=== PATIENT | female | born 1950 | race Caucasian/White ===

== ENCOUNTER 2018-05-29 22:54 | Inpatient (IN) | payer OTHER ==
[~2018-05-29] VITALS: Ht 165.1 cm; Wt 41.6 kg
[2018-05-29] MEDS ORDERED: ALBUTEROL/IPRATROPIUM 2.5MG/0.5MG, 3 ML NPPB ONE (23:00)
[2018-05-29] MEDS ORDERED: SODIUM CHLORIDE FLUSH 10ML SYR IVF ONE (23:00)
[2018-05-29] MEDS ORDERED: methylPREDNISolone SOD SUCC 125 MG/2 ML IVP ONE (23:00)
--- NOTE | 2018-05-29 23:17 | NUR ---
bib remsa for sob and pt reports gettin worse over last 2 weeks. pt was able to speak 3-4 word sentences upon [facility] arrival. pt given 1 nitro/ rt txts. still breathing 50/min upon arrival. pt placed on optiflow and now rr is 40s and pt reports feeling better. ekg done, lab at [facility].
[2018-05-29] MEDS ORDERED: methylPREDNISolone SOD SUCC 125 MG/2 ML ONE (23:20)
[2018-05-29] MEDS ORDERED: PLEASE ENTER ALLERGIES MC SCH (23:30)
[2018-05-29 23:40] LABS: BASOPHILS # (AUTO) 0.01 x10^3/uL (0-0.1); BASOPHILS % (AUTO) 0 % (0-1); EOSINOPHILS # (AUTO) 0.02 x10^3/uL (0-0.4); EOSINOPHILS % (AUTO) 0 % (1-7); LYMPHOCYTES # (AUTO) 0.63 x10^3/uL (1-3.4); LYMPHOCYTES % (AUTO) 6 % (22-44); MD NO; MEAN CORPUSCULAR HEMOGLOBIN 28.8 pg (27.0-34.8); MEAN CORPUSCULAR HGB CONC 31.8 g/dL (32.4-35.8); MEAN CORPUSCULAR VOLUME 90.6 fL (80-100); MEAN PLATELET VOLUME 10.1 fL (7.4-10.4); MONOCYTES # (AUTO) 0.52 x10^3/uL (0.2-0.8); MONOCYTES % (AUTO) 5 % (2-9); NEUTROPHILS # (AUTO) 9.27 x10^3/uL (1.8-6.8); NEUTROPHILS % (AUTO) 89 % (42-75); PLATELET COUNT 200 x10^3/uL (130-400); RED BLOOD COUNT 4.45 x10^6/uL (3.82-5.3); RED CELL DISTRIBUTION WIDTH 14.8 % (9.6-15.2)
[2018-05-29 23:51] LABS: ALBUMIN 3.6 g/dL (3.4-5.0); ANION GAP 4 mmol/L (5-15); CALCIUM 10.1 mg/dL (8.5-10.1); CHLORIDE 106 mmol/L (98-107)
[2018-05-29] MEDS ORDERED: METF500T17 PO (23:55)
[2018-05-29] MEDS ORDERED: SPIR25TA5 PO (23:55)
[2018-05-29] MEDS ORDERED: IPRA4AER IH (23:55)
[2018-05-29] MEDS ORDERED: POTA10TA12 PO (23:55)
[2018-05-29] MEDS ORDERED: CHOL10002 PO (23:55)
[2018-05-29] MEDS ORDERED: TIOT18CA INH (23:55)
[2018-05-29] MEDS ORDERED: CARV12.543 PO (23:55)
[2018-05-29 23:56] LABS: ALANINE AMINOTRANSFERASE 37 U/L (12-78); ALKALINE PHOSPHATASE 115 U/L (45-117); BILIRUBIN,TOTAL 0.9 mg/dL (0.2-1.0); CREATININE 1.25 mg/dL (0.55-1.02); TOTAL PROTEIN 6.4 g/dL (6.4-8.2); TROPONIN I 0.081 ng/mL (0.000-0.045)
[2018-05-30] MEDS ORDERED: ETOMIDATE 40 MG/20 ML ONE
[2018-05-30] MEDS ORDERED: ROCURONIUM 10 MG/ML,10ML ONE
[2018-05-30] MEDS ORDERED: SUCCINYLCHOLINE 20 MG/ML, 10ML ONE
[2018-05-30] MEDS ORDERED: PROPOFOL 10 MG/ML, 100ML IV ONE
--- NOTE | 2018-05-30 00:08 | NUR ---
pt tolerating optiflo better. pt sleeping, side rails up, locked and pt given ice chips/
[2018-05-30] MEDS ORDERED: FUROSEMIDE 40 MG/4 ML IV ONE (00:30)
[2018-05-30] MEDS ORDERED: ASPIRIN 325 MG TABLET PO ONE (00:30)
--- NOTE | 2018-05-30 00:32 | NUR ---
PT BEDSIDE REPORT FROM MONIQUE RN. THIS RN TO ASSUME CARE OF PT. PT LUNG SOUNDS DIMINISHED THROUGHOUT. NO NOTABLE EXPIRATORY WHEEZES AT THIS TIME. PT TOLERATING OPTI-FLOW WELL AND RT TO DECREASE SETTINGS. VSS. CALL LIGHT WITHIN REACH. AWAITING ADM.
[2018-05-30] MEDS ORDERED: FUROSEMIDE 20 MG/2 ML ONE (00:37)
[2018-05-30] MEDS ORDERED: ASPIRIN 325 MG TABLET ONE (00:37)
[2018-05-30] MEDS ORDERED: ALBUTEROL/IPRATROPIUM 2.5MG/0.5MG, 3 ML ONE (01:19)
[2018-05-30] MEDS ORDERED: ACETAMINOPHEN 325 MG TABLET PO PRN (02:00)
[2018-05-30] MEDS ORDERED: LABETALOL 5MG/ML, 20ML IVPush PRN (02:00)
[2018-05-30] MEDS ORDERED: PROMETHAZINE 25 MG/ML, 1ML IM PRN (02:00)
[2018-05-30] MEDS ORDERED: ONDANSETRON ODT 4 MG PO PRN (02:00)
[2018-05-30] MEDS ORDERED: ONDANSETRON 2MG/ML, 2ML IVPush PRN (02:00)
[2018-05-30] MEDS ORDERED: hydrALAzine 20 MG/ML, 1ML IVPush PRN (02:00)
[2018-05-30] MEDS: ALBUTEROL/IPRATROPIUM 2.5MG/0.5MG, 3 ML NPPB SCH ×4 (02:00→13:44)
[2018-05-30] MEDS ORDERED: DOCUSATE 100 MG CAPSULE PO PRN (02:00)
[2018-05-30] MEDS ORDERED: BISACODYL 10 MG SUPP PR PRN ×2 (02:00→15:00)
[2018-05-30] MEDS ORDERED: POLYETHYLENE GLYCOL 17 GM PACKET PO PRN (02:00)
[2018-05-30] MEDS: methylPREDNISolone SOD SUCC 125 MG/2 ML IVPush SCH ×4 (02:23→21:40)
[2018-05-30] MEDS: FUROSEMIDE 20 MG/2 ML IV SCH ×2 (02:23→08:38)
--- NOTE | 2018-05-30 02:36 | NUR ---
PT SLEEPING COMFORTABLY ON GURNEY. RR EVEN AND UNLABORED. PT EASILY ROUSABLE TO NAME. STATES "I HAVENT BREATHED THIS GOOD IN YEARS". CALL LIGHT WITHIN REACH.
--- NOTE | 2018-05-30 02:38 | NUR ---
PT OFFERED MORE COMFORTABLE BED (HOSPITAL BED). PT DENIES AT THIS TIME. "I JUST WANT TO SLEEP. IM COMFORTABLE"
[2018-05-30 02:40] LABS: FREE T4 (FREE THYROXINE) 1.53 ng/dL (0.76-1.46); HEMOGLOBIN A1C 7.3 % (4.2-6.3); THYROID STIMULATING HORMONE 1.98 mIU/L (0.358-3.740)
--- NOTE | 2018-05-30 02:40 | NUR ---
PT PUT PANTS BACK ON BECAUSE COLD. GIVEN ALEE LEONELGGER AND STILL ASKING FOR PANTS.
[2018-05-30] MEDS ORDERED: HEPARIN 5,000 UNITS/ML, 1ML ONE (02:48)
[2018-05-30] MEDS: HEPARIN 5,000 UNITS/ML, 1ML SQ SCH ×3 (02:52→18:13)
[2018-05-30 05:28] VITALS: BP 162/93
[2018-05-30 07:40] VITALS: BP 158/84
[2018-05-30] MEDS: INSULIN LISPRO 100 UNITS/ML, PEN SQ-INSULIN SCH ×7 (08:50→20:38)
[2018-05-30] MEDS: CHOLECALCIFEROL 1,000 UNIT TABLET PO SCH (08:50)
[2018-05-30] MEDS: DOXYCYCLINE 100MG TABLET PO SCH ×2 (08:50→20:46)
[2018-05-30] MEDS: CARVEDILOL 12.5 MG TABLET PO SCH ×2 (08:50→20:46)
[2018-05-30] MEDS ORDERED: SPIRONOLACTONE 25 MG TABLET PO SCH (09:00)
[2018-05-30] MEDS ORDERED: BUDESONIDE 0.5 MG/2 ML INHA INH SCH (09:00)
[2018-05-30 12:29] LABS: ANION GAP 6 mmol/L (5-15); CALCIUM 9.5 mg/dL (8.5-10.1); CHLORIDE 103 mmol/L (98-107); CREATININE 1.03 mg/dL (0.55-1.02)
[2018-05-30 12:31] VITALS: BP 124/77
[2018-05-30] MEDS ORDERED: FENTANYL PF 100 MCG/2ML ONE (14:16)
[2018-05-30] MEDS ORDERED: NOREPINEPHRINE 4 MG in SODIUM CHLORIDE 0.9% 246 ML IV PRN (14:31)
[2018-05-30] MEDS ORDERED: SODIUM CHLORIDE 0.9% 1,000 ML IV SCH (14:31)
[2018-05-30] MEDS ORDERED: SODIUM CHLORIDE 0.9%, 500ML IV ONE (15:00)
[2018-05-30] MEDS ORDERED: AMPICILLIN/SULBACTAM 3 GM IM ONE (15:00)
[2018-05-30] MEDS: ALBUTEROL/IPRATROPIUM 2.5MG/0.5MG, 3 ML INLINE SCH ×3 (15:00→22:56)
[2018-05-30] MEDS ORDERED: DEXTROSE 4 GM TAB.CHEW PO PRN (15:00)
[2018-05-30] MEDS ORDERED: PHARMACY MAY ADJ FOR RENAL FX MC SCH (15:00)
[2018-05-30] MEDS ORDERED: DEXTROSE 50%, 50ML SYRINGE IVPush PRN (15:00)
[2018-05-30] MEDS ORDERED: LACTULOSE 20 GM/30 ML UDC NG PRN (15:00)
[2018-05-30] MEDS ORDERED: SENNOSIDES 8.8 MG/5 ML ORAL SOL NG PRN (15:00)
[2018-05-30] MEDS ORDERED: LIDOCAINE-MPF 1%, 2ML ENDO PRN (15:00)
[2018-05-30] MEDS ORDERED: GLUCAGON 1 MG IM PRN (15:00)
[2018-05-30 15:09] LABS: BASOPHILS % (AUTO) 0 % (0-1); EOSINOPHILS % (AUTO) 0 % (1-7); LYMPHOCYTES # (AUTO) 0.16 x10^3/uL (1-3.4); LYMPHOCYTES % (AUTO) 3 % (22-44); MD NO; MEAN CORPUSCULAR HEMOGLOBIN 28.3 pg (27.0-34.8); MEAN CORPUSCULAR HGB CONC 31.4 g/dL (32.4-35.8); MEAN CORPUSCULAR VOLUME 90.3 fL (80-100); MEAN PLATELET VOLUME 9.9 fL (7.4-10.4); MONOCYTES # (AUTO) 0.12 x10^3/uL (0.2-0.8); MONOCYTES % (AUTO) 3 % (2-9); NEUTROPHILS # (AUTO) 4.26 x10^3/uL (1.8-6.8); NEUTROPHILS % (AUTO) 94 % (42-75); PLATELET COUNT 144 x10^3/uL (130-400); RED BLOOD COUNT 3.89 x10^6/uL (3.82-5.3); RED CELL DISTRIBUTION WIDTH 14.9 % (9.6-15.2)
[2018-05-30 15:10] LABS: HEMOGRAM NOTE RECHECKED
[2018-05-30 15:16] LABS: ANION GAP 4 mmol/L (5-15); CALCIUM 9.7 mg/dL (8.5-10.1); CHLORIDE 105 mmol/L (98-107); CREATININE 1.37 mg/dL (0.55-1.02); TRIGLYCERIDES 120 mg/dL (50-200)
[2018-05-30 15:36] LABS: INTERNATIONAL NORMALIZED RATIO 1.29 (0.93-1.1); PROTHROMBIN TIME 13.5 Seconds (9.6-11.5)
[2018-05-30] MEDS ORDERED: FENTANYL PF 100 MCG/2ML IVPush ONE (16:00)
[2018-05-30] MEDS: PROPOFOL 100 ML IV PRN ×2 (16:08→21:37)
[2018-05-30 17:58] LABS: MICROSCOPIC INDICATED
[2018-05-30] MEDS: AMPICILLIN/SULBACTAM 3 GM in SODIUM CHLORIDE 0.9% 100 ML IV SCH (18:13)
[2018-05-30 18:25] LABS: CULTURE INDICATED? NO
[2018-05-30] MEDS: SODIUM CHLORIDE FLUSH 10ML SYR IVF SCH (20:47)
[2018-05-30 21:00] LABS: TROPONIN I 0.064 ng/mL (0.000-0.045)
[2018-05-30] MEDS: BUDESONIDE 0.5 MG/2 ML INHA INH SCH (22:56)
[2018-05-31] MEDS: AMPICILLIN/SULBACTAM 3 GM in SODIUM CHLORIDE 0.9% 100 ML IV SCH ×4 (00:53→18:50)
[2018-05-31] MEDS: HEPARIN 5,000 UNITS/ML, 1ML SQ SCH ×3 (02:41→17:33)
[2018-05-31] MEDS: ALBUTEROL/IPRATROPIUM 2.5MG/0.5MG, 3 ML INLINE SCH ×6 (03:00→22:30)
[2018-05-31] MEDS: methylPREDNISolone SOD SUCC 125 MG/2 ML IVPush SCH ×2 (04:01→11:31)
[2018-05-31 04:29] VITALS: BP 140/67
[2018-05-31 05:36] LABS: MEAN CORPUSCULAR HEMOGLOBIN 29.3 pg (27.0-34.8); MEAN CORPUSCULAR HGB CONC 32.2 g/dL (32.4-35.8); MEAN CORPUSCULAR VOLUME 90.9 fL (80-100); MEAN PLATELET VOLUME 10.3 fL (7.4-10.4); PLATELET COUNT 152 x10^3/uL (130-400); RED BLOOD COUNT 4.04 x10^6/uL (3.82-5.3); RED CELL DISTRIBUTION WIDTH 14.8 % (9.6-15.2)
[2018-05-31 05:49] LABS: ANION GAP 8 mmol/L (5-15); CALCIUM 9.8 mg/dL (8.5-10.1); CHLORIDE 107 mmol/L (98-107)
[2018-05-31 05:54] LABS: ALANINE AMINOTRANSFERASE 41 U/L (12-78); ALKALINE PHOSPHATASE 136 U/L (45-117); BILIRUBIN,TOTAL 0.9 mg/dL (0.2-1.0); CHOL/HDL RATIO 3.1; CHOLESTEROL, TOTAL 132 mg/dL (140-239); CREATININE 1.17 mg/dL (0.55-1.02); HDL CHOL % 32 % (28-40); HDL CHOLESTEROL (DIRECT) 42 mg/dL (40-60); LDL CHOLESTEROL,CALCULATED 64 mg/dL (54-169); LDL/HDL RATIO 1.5 (0.5-3.0); TOTAL PROTEIN 5.4 g/dL (6.4-8.2); TRIGLYCERIDES 131 mg/dL (50-200); VLDL CHOLESTEROL 26 mg/dL (0-25)
[2018-05-31 05:55] LABS: BASOPHILS % (AUTO) 0 % (0-1); EOSINOPHILS % (AUTO) 0 % (1-7); LYMPHOCYTES # (AUTO) 0.34 x10^3/uL (1-3.4); LYMPHOCYTES % (AUTO) 3 % (22-44); MD SCAN; MONOCYTES # (AUTO) 0.14 x10^3/uL (0.2-0.8); MONOCYTES % (AUTO) 1 % (2-9); NEUTROPHILS # (AUTO) 13.24 x10^3/uL (1.8-6.8); NEUTROPHILS % (AUTO) 97 % (42-75)
[2018-05-31] MEDS: SODIUM CHLORIDE 0.9% 1,000 ML IV SCH ×2 (05:57→21:18)
[2018-05-31] MEDS ORDERED: SODIUM CHLORIDE 0.9% 1,000ML IVBOLUS ONE (06:00)
[2018-05-31] MEDS: BUDESONIDE 0.5 MG/2 ML INHA INH SCH ×2 (06:47→18:45)
[2018-05-31] MEDS: INSULIN LISPRO 100 UNITS/ML, PEN SQ-INSULIN SCH ×4 (07:00→21:05)
[2018-05-31] MEDS: CARVEDILOL 12.5 MG TABLET PO SCH ×2 (09:00→21:05)
[2018-05-31] MEDS: SODIUM CHLORIDE FLUSH 10ML SYR IVF SCH ×2 (09:00→21:17)
--- NOTE | 2018-05-31 11:27 | NUR ---
TF GOAL: w/ propofol: PROMOTE @ 50ML/HR off propofol: PROMOTE @ 55ML/HR
[2018-05-31] MEDS: CHOLECALCIFEROL 1,000 UNIT TABLET PO SCH (11:31)
[2018-05-31] MEDS: PROPOFOL 100 ML IV PRN ×2 (11:31→17:30)
[2018-05-31] MEDS: DOXYCYCLINE 100MG TABLET PO SCH ×2 (11:34→21:05)
[2018-05-31] MEDS ORDERED: ALBUMIN HUMAN 25% 100 ML IV ONE (12:57)
[2018-05-31] MEDS ORDERED: MAGNESIUM SULFATE PMX 2GM/50ML 50 ML IV ONE (14:30)
[2018-05-31] MEDS: CARVEDILOL 3.125 MG TABLET PO SCH (17:29)
[2018-05-31] MEDS: morphine SULFATE 10 MG/ML, 1ML IVPush PRN (21:03)
[2018-05-31] MEDS: methylPREDNISolone SOD SUCC 40 MG/ML IVPush SCH (21:03)
[2018-06-01] MEDS: HEPARIN 5,000 UNITS/ML, 1ML SQ SCH ×3 (01:07→17:24)
[2018-06-01] MEDS: AMPICILLIN/SULBACTAM 3 GM in SODIUM CHLORIDE 0.9% 100 ML IV SCH ×4 (01:07→19:50)
[2018-06-01] MEDS: ALBUTEROL/IPRATROPIUM 2.5MG/0.5MG, 3 ML INLINE SCH ×6 (02:40→23:00)
[2018-06-01] MEDS: methylPREDNISolone SOD SUCC 40 MG/ML IVPush SCH ×4 (03:07→22:54)
[2018-06-01 04:15] LABS: MEAN CORPUSCULAR HEMOGLOBIN 28.8 pg (27.0-34.8); MEAN CORPUSCULAR HGB CONC 31.9 g/dL (32.4-35.8); MEAN CORPUSCULAR VOLUME 90.3 fL (80-100); MEAN PLATELET VOLUME 10.6 fL (7.4-10.4); PLATELET COUNT 136 x10^3/uL (130-400); RED BLOOD COUNT 3.61 x10^6/uL (3.82-5.3); RED CELL DISTRIBUTION WIDTH 14.9 % (9.6-15.2)
[2018-06-01 04:21] LABS: ANION GAP 6 mmol/L (5-15); CALCIUM 9.1 mg/dL (8.5-10.1); CHLORIDE 110 mmol/L (98-107); CREATININE 1.15 mg/dL (0.55-1.02)
[2018-06-01 04:42] VITALS: BP 117/59
[2018-06-01 04:49] LABS: BASOPHILS % (AUTO) 0 % (0-1); EOSINOPHILS % (AUTO) 0 % (1-7); LYMPHOCYTES # (AUTO) 0.18 x10^3/uL (1-3.4); LYMPHOCYTES % (AUTO) 3 % (22-44); MD SCAN; MONOCYTES # (AUTO) 0.13 x10^3/uL (0.2-0.8); MONOCYTES % (AUTO) 2 % (2-9); NEUTROPHILS # (AUTO) 6.71 x10^3/uL (1.8-6.8); NEUTROPHILS % (AUTO) 96 % (42-75)
[2018-06-01] MEDS: PROPOFOL 100 ML IV PRN ×2 (04:49→17:35)
[2018-06-01] MEDS: CARVEDILOL 3.125 MG TABLET PO SCH ×2 (04:50→17:24)
[2018-06-01] MEDS ORDERED: MIDAZOLAM 1 MG/ML, 5ML IVPush ONE (05:00)
[2018-06-01] MEDS: INSULIN LISPRO 100 UNITS/ML, PEN SQ-INSULIN SCH ×4 (07:35→23:03)
[2018-06-01] MEDS: CARVEDILOL 12.5 MG TABLET PO SCH ×2 (09:51→19:50)
[2018-06-01] MEDS: SODIUM CHLORIDE FLUSH 10ML SYR IVF SCH ×2 (09:51→19:51)
[2018-06-01] MEDS: CHOLECALCIFEROL 1,000 UNIT TABLET PO SCH (09:51)
[2018-06-01] MEDS: BUDESONIDE 0.5 MG/2 ML INHA INH SCH ×2 (10:19→21:00)
[2018-06-02] MEDS: morphine SULFATE 10 MG/ML, 1ML IVPush PRN (00:33)
[2018-06-02] MEDS: HEPARIN 5,000 UNITS/ML, 1ML SQ SCH ×3 (01:44→16:48)
[2018-06-02] MEDS: AMPICILLIN/SULBACTAM 3 GM in SODIUM CHLORIDE 0.9% 100 ML IV SCH ×4 (01:44→20:57)
[2018-06-02] MEDS: ALBUTEROL/IPRATROPIUM 2.5MG/0.5MG, 3 ML INLINE SCH ×4 (02:40→13:00)
[2018-06-02 03:48] VITALS: BP 107/61
[2018-06-02] MEDS: INSULIN LISPRO 100 UNITS/ML, PEN SQ-INSULIN SCH ×4 (04:35→21:05)
[2018-06-02] MEDS: methylPREDNISolone SOD SUCC 40 MG/ML IVPush SCH ×4 (04:35→23:55)
[2018-06-02 04:38] LABS: MEAN CORPUSCULAR HEMOGLOBIN 28.8 pg (27.0-34.8); MEAN CORPUSCULAR VOLUME 90.2 fL (80-100); MEAN PLATELET VOLUME 10.3 fL (7.4-10.4); PLATELET COUNT 121 x10^3/uL (130-400); RED BLOOD COUNT 3.65 x10^6/uL (3.82-5.3); RED CELL DISTRIBUTION WIDTH 15.1 % (9.6-15.2)
[2018-06-02 04:52] LABS: CHLORIDE 111 mmol/L (98-107)
[2018-06-02 05:10] LABS: ALANINE AMINOTRANSFERASE 36 U/L (12-78); ALBUMIN 2.5 g/dL (3.4-5.0); ALKALINE PHOSPHATASE 96 U/L (45-117); ANION GAP 4 mmol/L (5-15); BILIRUBIN,TOTAL 0.6 mg/dL (0.2-1.0); CALCIUM 8.9 mg/dL (8.5-10.1); CREATININE 0.94 mg/dL (0.55-1.02); TOTAL PROTEIN 4.5 g/dL (6.4-8.2); TRIGLYCERIDES 102 mg/dL (50-200)
[2018-06-02 05:45] LABS: BASOPHILS % (AUTO) 0 % (0-1); EOSINOPHILS % (AUTO) 0 % (1-7); LYMPHOCYTES # (AUTO) 0.12 x10^3/uL (1-3.4); LYMPHOCYTES % (AUTO) 2 % (22-44); MD SCAN; MONOCYTES % (AUTO) 3 % (2-9); NEUTROPHILS # (AUTO) 7.41 x10^3/uL (1.8-6.8); NEUTROPHILS % (AUTO) 96 % (42-75)
[2018-06-02] MEDS: CARVEDILOL 3.125 MG TABLET PO SCH (05:55)
[2018-06-02] MEDS ORDERED: SODIUM CHLORIDE 0.9% 1,000 ML IV SCH (06:00)
[2018-06-02] MEDS: BUDESONIDE 0.5 MG/2 ML INHA INH SCH (06:50)
[2018-06-02] MEDS: CHOLECALCIFEROL 1,000 UNIT TABLET PO SCH (08:34)
[2018-06-02] MEDS: SODIUM CHLORIDE FLUSH 10ML SYR IVF SCH ×2 (08:34→20:57)
[2018-06-02] MEDS: CARVEDILOL 12.5 MG TABLET PO SCH ×2 (08:35→20:57)
[2018-06-02] MEDS: FUROSEMIDE 40 MG/4 ML IV SCH ×2 (09:35→16:47)
[2018-06-02] MEDS: SENNA/DOCUSATE TABLET NG PRN (09:35)
[2018-06-02] MEDS: PANTOPRAZOLE 40 MG IV IVPush SCH (09:35)
[2018-06-02] MEDS: SPIRONOLACTONE 25 MG TABLET PO SCH (10:20)
[2018-06-02] MEDS ORDERED: methylPREDNISolone SOD SUCC 40 MG/ML IVPush SCH (14:00)
[2018-06-02] MEDS: ALBUTEROL/IPRATROPIUM 2.5MG/0.5MG, 3 ML NEB SCH ×2 (18:33→22:16)
[2018-06-02] MEDS: BUDESONIDE 0.5 MG/2 ML INHA NEB SCH (18:33)
[2018-06-03] MEDS: HEPARIN 5,000 UNITS/ML, 1ML SQ SCH ×3 (02:49→16:31)
[2018-06-03] MEDS: AMPICILLIN/SULBACTAM 3 GM in SODIUM CHLORIDE 0.9% 100 ML IV SCH ×3 (02:49→13:48)
[2018-06-03] MEDS: ALBUTEROL/IPRATROPIUM 2.5MG/0.5MG, 3 ML NEB SCH ×6 (03:00→23:10)
[2018-06-03 04:00] VITALS: BP 141/71
[2018-06-03 04:39] LABS: MEAN CORPUSCULAR HEMOGLOBIN 28.7 pg (27.0-34.8); MEAN CORPUSCULAR HGB CONC 31.6 g/dL (32.4-35.8); MEAN CORPUSCULAR VOLUME 90.8 fL (80-100); MEAN PLATELET VOLUME 10.3 fL (7.4-10.4); PLATELET COUNT 126 x10^3/uL (130-400); RED BLOOD COUNT 3.88 x10^6/uL (3.82-5.3); RED CELL DISTRIBUTION WIDTH 14.7 % (9.6-15.2)
[2018-06-03 04:40] LABS: ALANINE AMINOTRANSFERASE 35 U/L (12-78); ALBUMIN 2.7 g/dL (3.4-5.0); ANION GAP 3 mmol/L (5-15); CALCIUM 9.2 mg/dL (8.5-10.1); CHLORIDE 104 mmol/L (98-107); CREATININE 0.97 mg/dL (0.55-1.02)
[2018-06-03 04:42] LABS: ALKALINE PHOSPHATASE 94 U/L (45-117); BILIRUBIN,TOTAL 0.7 mg/dL (0.2-1.0); TOTAL PROTEIN 4.8 g/dL (6.4-8.2)
[2018-06-03 05:05] LABS: MD YES
[2018-06-03 05:07] LABS: ANISOCYTOSIS 1+; BAND#(MANUAL) 0.39 x10^3/uL; BANDS%(MANUAL) 4 % (0-7); LYMPHS% (MANUAL) 1 % (22-44); OVALOCYTES 1+; SEG#(MANUAL) 9.31 x10^3/uL (1.8-6.8); SEGS% (MANUAL) 95 % (42-75)
[2018-06-03 05:08] LABS: <PLATELET ESTIMATE> ADEQUATE; <PLT MORPHOLOGY> NORMAL PLT MORPH
[2018-06-03] MEDS: methylPREDNISolone SOD SUCC 40 MG/ML IVPush SCH ×3 (06:29→16:30)
[2018-06-03] MEDS: INSULIN LISPRO 100 UNITS/ML, PEN SQ-INSULIN SCH ×4 (06:30→20:45)
[2018-06-03] MEDS: BUDESONIDE 0.5 MG/2 ML INHA NEB SCH ×2 (07:20→19:36)
[2018-06-03] MEDS ORDERED: MAGNESIUM SULFATE PMX 2GM/50ML 50 ML IV ONE (07:30)
[2018-06-03] MEDS: FUROSEMIDE 40 MG/4 ML IV SCH ×2 (08:06→16:31)
[2018-06-03] MEDS: SENNA/DOCUSATE TABLET NG PRN ×2 (08:07→20:35)
[2018-06-03] MEDS: PANTOPRAZOLE 40 MG IV IVPush SCH (08:07)
[2018-06-03] MEDS: CHOLECALCIFEROL 1,000 UNIT TABLET PO SCH (08:08)
[2018-06-03] MEDS: CARVEDILOL 12.5 MG TABLET PO SCH ×2 (08:08→20:35)
[2018-06-03] MEDS: SPIRONOLACTONE 25 MG TABLET PO SCH (08:09)
[2018-06-03] MEDS: SODIUM CHLORIDE FLUSH 10ML SYR IVF SCH ×2 (08:09→20:35)
[2018-06-03] MEDS ORDERED: PIPERACILLIN/TAZO/PMX 3.375GM 50 ML IV SCH (18:30)
[2018-06-03 19:37] VITALS: BP 133/70
[2018-06-03] MEDS: PIPERACILLIN/TAZO/PMX 3.375GM 50 ML IV SCH (20:35)
[2018-06-04 00:43] VITALS: BP 138/73
[2018-06-04] MEDS: HEPARIN 5,000 UNITS/ML, 1ML SQ SCH ×3 (00:59→17:22)
[2018-06-04] MEDS: methylPREDNISolone SOD SUCC 40 MG/ML IVPush SCH ×3 (00:59→12:11)
[2018-06-04] MEDS: PIPERACILLIN/TAZO/PMX 3.375GM 50 ML IV SCH ×3 (01:00→13:08)
[2018-06-04] MEDS: ALBUTEROL/IPRATROPIUM 2.5MG/0.5MG, 3 ML NEB SCH ×6 (03:00→23:00)
[2018-06-04 05:29] LABS: MEAN CORPUSCULAR HEMOGLOBIN 29.6 pg (27.0-34.8); MEAN CORPUSCULAR HGB CONC 33.1 g/dL (32.4-35.8); MEAN CORPUSCULAR VOLUME 89.4 fL (80-100); MEAN PLATELET VOLUME 10.5 fL (7.4-10.4); PLATELET COUNT 126 x10^3/uL (130-400); RED BLOOD COUNT 3.86 x10^6/uL (3.82-5.3); RED CELL DISTRIBUTION WIDTH 14.6 % (9.6-15.2)
[2018-06-04 05:42] LABS: ALBUMIN 2.6 g/dL (3.4-5.0); ANION GAP 6 mmol/L (5-15); CALCIUM 9.3 mg/dL (8.5-10.1); CHLORIDE 97 mmol/L (98-107)
[2018-06-04 05:46] LABS: ALANINE AMINOTRANSFERASE 35 U/L (12-78); ALKALINE PHOSPHATASE 94 U/L (45-117); BILIRUBIN,TOTAL 0.8 mg/dL (0.2-1.0); CREATININE 0.89 mg/dL (0.55-1.02); TOTAL PROTEIN 4.8 g/dL (6.4-8.2)
[2018-06-04 06:18] LABS: BASOPHILS # (AUTO) 0.01 x10^3/uL (0-0.1); BASOPHILS % (AUTO) 0 % (0-1); EOSINOPHILS % (AUTO) 0 % (1-7); LYMPHOCYTES # (AUTO) 0.13 x10^3/uL (1-3.4); LYMPHOCYTES % (AUTO) 1 % (22-44); MD SCAN; MONOCYTES # (AUTO) 0.33 x10^3/uL (0.2-0.8); MONOCYTES % (AUTO) 4 % (2-9); NEUTROPHILS # (AUTO) 8.81 x10^3/uL (1.8-6.8); NEUTROPHILS % (AUTO) 95 % (42-75)
[2018-06-04] MEDS: BUDESONIDE 0.5 MG/2 ML INHA NEB SCH ×2 (06:20→19:12)
[2018-06-04 07:12] VITALS: BP 157/78
[2018-06-04] MEDS: SODIUM CHLORIDE FLUSH 10ML SYR IVF SCH ×2 (07:55→20:33)
[2018-06-04] MEDS: FUROSEMIDE 40 MG/4 ML IV SCH (07:55)
[2018-06-04] MEDS: SPIRONOLACTONE 25 MG TABLET PO SCH (09:45)
[2018-06-04] MEDS: PANTOPRAZOLE 40 MG IV IVPush SCH (09:45)
[2018-06-04] MEDS: CARVEDILOL 12.5 MG TABLET PO SCH ×2 (09:46→20:32)
[2018-06-04] MEDS: CHOLECALCIFEROL 1,000 UNIT TABLET PO SCH (09:46)
[2018-06-04] MEDS: INSULIN LISPRO 100 UNITS/ML, PEN SQ-INSULIN SCH ×4 (09:47→20:32)
[2018-06-04 12:58] VITALS: BP 142/65
[2018-06-04 17:10] LABS: HIT RESULT NEGATIVE (NEGATIVE)
[2018-06-04 18:47] VITALS: BP 156/73
[2018-06-04] MEDS: SULFAMETH./TRIMETHOPRIM DS 800MG/160MG TABLET PO SCH (20:32)
[2018-06-05 01:29] VITALS: BP 129/80
[2018-06-05] MEDS: HEPARIN 5,000 UNITS/ML, 1ML SQ SCH ×3 (02:25→16:26)
[2018-06-05] MEDS: ALBUTEROL/IPRATROPIUM 2.5MG/0.5MG, 3 ML NEB SCH ×4 (02:34→15:05)
[2018-06-05 05:31] LABS: MEAN CORPUSCULAR HEMOGLOBIN 28.7 pg (27.0-34.8); MEAN CORPUSCULAR HGB CONC 32.3 g/dL (32.4-35.8); MEAN CORPUSCULAR VOLUME 88.8 fL (80-100); MEAN PLATELET VOLUME 10.3 fL (7.4-10.4); PLATELET COUNT 138 x10^3/uL (130-400); RED BLOOD COUNT 3.77 x10^6/uL (3.82-5.3); RED CELL DISTRIBUTION WIDTH 14.7 % (9.6-15.2)
[2018-06-05] MEDS ORDERED: PANTOPROZOLE 40MG TABLET PO SCH (06:00)
[2018-06-05 06:05] LABS: BASOPHILS % (AUTO) 0 % (0-1); EOSINOPHILS # (AUTO) 0.01 x10^3/uL (0-0.4); EOSINOPHILS % (AUTO) 0 % (1-7); LYMPHOCYTES # (AUTO) 0.45 x10^3/uL (1-3.4); LYMPHOCYTES % (AUTO) 4 % (22-44); MD SCAN; MONOCYTES # (AUTO) 0.81 x10^3/uL (0.2-0.8); MONOCYTES % (AUTO) 8 % (2-9); NEUTROPHILS # (AUTO) 9.49 x10^3/uL (1.8-6.8); NEUTROPHILS % (AUTO) 88 % (42-75)
[2018-06-05] MEDS ORDERED: MAGNESIUM SULFATE PMX 2GM/50ML 50 ML IV ONE ×2 (06:30→10:30)
[2018-06-05] MEDS: INSULIN LISPRO 100 UNITS/ML, PEN SQ-INSULIN SCH ×3 (07:00→18:07)
[2018-06-05 07:22] VITALS: BP 132/73
[2018-06-05] MEDS: BUDESONIDE 0.5 MG/2 ML INHA NEB SCH (07:25)
[2018-06-05] MEDS: SPIRONOLACTONE 25 MG TABLET PO SCH (08:51)
[2018-06-05] MEDS: CHOLECALCIFEROL 1,000 UNIT TABLET PO SCH (08:51)
[2018-06-05] MEDS: SULFAMETH./TRIMETHOPRIM DS 800MG/160MG TABLET PO SCH (08:52)
[2018-06-05] MEDS: CARVEDILOL 12.5 MG TABLET PO SCH (08:52)
[2018-06-05] MEDS: SODIUM CHLORIDE FLUSH 10ML SYR IVF SCH (09:00)
[2018-06-05] MEDS ORDERED: FUROSEMIDE 40 MG TABLET PO SCH (12:00)
[2018-06-05] MEDS ORDERED: LOSARTAN 25MG TABLET PO SCH (12:00)
[2018-06-05] MEDS ORDERED: SULF-169 PO (12:09)
[2018-06-05] MEDS ORDERED: FLUT1BLS INH (12:09)
[2018-06-05] MEDS ORDERED: PRED5TAB PO (12:09)
[2018-06-05] MEDS ORDERED: POLY17PO5 PO (12:09)
[2018-06-05] MEDS ORDERED: PANT40TA5 PO (12:09)
[2018-06-05] MEDS ORDERED: FURO40TA6 PO (12:09)
[2018-06-05] MEDS ORDERED: LOSA25TA25 PO (12:09)
[2018-06-05] MEDS ORDERED: IPRA3AMP30 NEB (12:09)
--- NOTE | 2018-06-05 12:53 | NUR ---
LIMOUSINE AND HEARSE UPHOLSTERER recommend: REGULAR/ THINS -No straws -Up at 90 degrres -Meds as tolerated [place] sheet posted for diet recommendations Addendum: 06/05/18 at [address] Amended: Links added.
[2018-06-05 13:20] VITALS: BP 107/58
== END 2018-06-05 18:37 | DRG 208 ==
LOC: ED 05-30 00:15 → 5SO 05-30 01:38 → ICU 05-30 14:12 → 5SO 06-03 17:16
PROVIDERS: ADMIT Internal Medicine; ATTEND Internal Medicine
PROC: 0T9B70Z Drainage of Bladder with Drainage Device, Via Natural or Artificial Opening (ICD-10-PCS; principal; 2018-05-30)
PROC: 5A1945Z Respiratory Ventilation, 24-96 Consecutive Hours (ICD-10-PCS; 2018-05-30)
PROC: 0BH17EZ Insertion of Endotracheal Airway into Trachea, Via Natural or Artificial Opening (ICD-10-PCS; 2018-05-30)
DX: J96.21 Acute and chronic respiratory failure with hypoxia (principal); J69.0 Pneumonitis due to inhalation of food and vomit; N17.0 Acute kidney failure with tubular necrosis; I50.43 Acute on chronic combined systolic (congestive) and diastolic (congestive) heart failure; Z99.11 Dependence on respirator [ventilator] status; E87.4 Mixed disorder of acid-base balance; E46 Unspecified protein-calorie malnutrition; I31.3 Pericardial effusion (noninflammatory); I42.9 Cardiomyopathy, unspecified; J44.1 Chronic obstructive pulmonary disease with (acute) exacerbation; J98.11 Atelectasis; R64 Cachexia; Z68.1 Body mass index [BMI] 19.9 or less, adult; J96.22 Acute and chronic respiratory failure with hypercapnia; D69.6 Thrombocytopenia, unspecified; E11.9 Type 2 diabetes mellitus without complications; I07.1 Rheumatic tricuspid insufficiency; I11.0 Hypertensive heart disease with heart failure; I35.8 Other nonrheumatic aortic valve disorders; Z95.810 Presence of automatic (implantable) cardiac defibrillator; Z72.0 Tobacco use
CPT/HCPCS: 36415; 36600; 71045; 74018; 74230; 80048; 80053; 80061; 81001; 82533; 82803; 82962; 83036; 83605; 83735; 83880; 84100; 84439; 84443; 84478; 84484; 85025; 85610; 85730; 86022; 87040; 87070; 87077; 87081; 87186; 87205; 93005; 93306; 93970; 94002; 94003; 94640; 96374; 96375; G0378; J0295; J1644; J1940; J2543; J2704; J3010; J7620; J7626; P9047; C9113; J0330; J1815; J2270; J2920; J2930; J3475; J7030; J7040; J7512